=== PATIENT | female | born 1940 | race Caucasian/White ===

== ENCOUNTER → 2018-07-06 | Outpatient (CLI) | payer OTHER ==
[~2018-07-06] MED LIST: OSTERA TABLET1 EACH PO; RXCLIN PO
[2018-07-06 09:55] LABS: Appearance, Urine Clear (Clear); Bilirubin, Urine Neg (Neg); Blood, Urine Neg (Neg); Color, Urine Yellow (P-Yellow); Glucose Qualitative, Urine Neg (Normal); Ketones, Urine Neg (Neg); Leukocyte Esterase, Urine Neg (Neg); Nitrite, Urine Neg (Neg); Protein, Urine Neg (Neg); Specific Gravity, Urine 1.015 (1.003-1.022); Urobilinogen, Urine NORM (Normal)
== END | disposition home or self-care (01) ==
LOC: LAB EV 08:40
PROVIDERS: Physician Assistant
DX: R30.0 Dysuria (principal)
CPT/HCPCS: 81003

== ENCOUNTER → 2019-03-12 | Outpatient (CLI) | payer OTHER | END | disposition home or self-care (01) | LOC: LAB 18:30 → LAB SHORT 18:30 | DX: R10.13 Epigastric pain (principal) | CPT/HCPCS: 87338 ==

== ENCOUNTER → 2023-05-10 | Outpatient (CLI) | payer OTHER | END | disposition home or self-care (01) | LOC: LAB SHORT 07:47 → LAB 07:47 | DX: D48.5 Neoplasm of uncertain behavior of skin (principal) | CPT/HCPCS: 88305 ==

== ENCOUNTER 2024-09-20 22:22 | Emergency (ER) | payer OTHER ==
[~2024-09-20] VITALS: Ht 170.2 cm; Wt 90.7 kg
[2024-09-21] MEDS ORDERED: Ibuprofen 600 MG Tab PO ONE (03:15)
[2024-09-21] MEDS ORDERED: Acetaminophen 500 MG Tab PO ONE (03:15)
[2024-09-21] MEDS ORDERED: Lidocaine 4% 1 Patch TOP ONE (03:15)
[2024-09-21] MEDS ORDERED: OxyCODONE HCL 5 MG TAB PO ONE (03:15)
[2024-09-21 07:40] VITALS: BP 138/58
== END 2024-09-21 06:39 | disposition home or self-care (01) ==
LOC: ER 22:22
DX: M54.6 Pain in thoracic spine (principal); Z79.899 Other long term (current) drug therapy
CPT/HCPCS: 71101; 73030; 99283-25; A9270